=== PATIENT | male | born 1960 | race Caucasian/White ===

== ENCOUNTER 2022-01-11 14:20 | Outpatient (REF) | payer BC, SELFPAY ==
[2022-01-11 17:26] LABS: ALT 67 U/L (16-63); AST 44 U/L (15-37); Albumin 3.9 g/dL (3.4-5.0); Alkaline Phosphatase 45 U/L (46-116); Anion Gap 12.7 mmol/L (3-11); BUN 15 mg/dL (7-18); Bilirubin, Total 0.8 mg/dL (0.2-1.0); CO2 26.3 mmol/L (21.0-32.0); CREATININE 1.2 mg/dL (0.70-1.30); Calcium 9.2 mg/dL (8.5-10.1); Calculated LDL 87 mg/dL (<100); Chloride 103 mmol/L (98-107); Cholesterol 157 mg/dL (<200); Glucose 202 mg/dL (74-106); HDL Cholesterol 34 mg/dL (40-60); Potassium 4.2 mmol/L (3.5-5.1); Sodium 142 mmol/L (136-145); Total Protein 7.2 g/dL (6.4-8.2); Triglyceride 184 mg/dL (<150)
[2022-01-11 18:09] LABS: HCT 43.1 % (40.0-50.0); HGB 14.1 g/dL (13.5-17.5); MCH 27.6 pg (27.0-33.0); MCHC 32.7 % (32.0-36.0); MCV 85 fL (80-95); MPV 10.6 fL (8.0-11.0); Platelet Count 240 10^3/uL (130-400); RDW 12.8 % (11.8-14.1); RDW-SD 39.2 fL; WBC 6.79 10^3/uL (4.4-10.8)
[2022-01-11 19:22] LABS: Hemoglobin A1C 10.6 % (<5.7)
[2022-01-12 17:54] LABS: Albumin ug/mg Crea 10 (<30); Albumin, Ur 1.9 mg/dL (See Note); Creatinine, Ur 188.4 mg/dL (See Note)
[2022-01-13 15:01] LABS: PSA, Screening 0.9 ng/mL (<=4.5)
== END 2022-01-11 14:21 | disposition home or self-care (01) ==
LOC: NCHCN 14:20
PROVIDERS: PCP Physician Assistant; Visit Provider Physician Assistant
DX: E11.9 Type 2 diabetes mellitus without complications (principal); I10 Essential (primary) hypertension; Z12.5 Encounter for screening for malignant neoplasm of prostate
CPT/HCPCS: 80053; 80061; 84153; 85027; 82043; 82570; 83036

== ENCOUNTER 2022-12-08 13:39 | Outpatient (REF) | payer BC, SELFPAY ==
[2022-12-08 16:18] LABS: ALT 49 U/L (16-63); AST 25 U/L (15-37); Albumin 4.2 g/dL (3.4-5.0); Alkaline Phosphatase 42 U/L (46-116); BUN 22 mg/dL (7-18); Bilirubin, Total 0.9 mg/dL (0.2-1.0); CREATININE 1.1 mg/dL (0.70-1.30); Calcium 9.7 mg/dL (8.5-10.1); Calculated LDL 85 mg/dL (<100); Chloride 104 mmol/L (98-107); Cholesterol 142 mg/dL (<200); Glucose 102 mg/dL (74-106); HDL Cholesterol 34 mg/dL (40-60); Potassium 4.9 mmol/L (3.5-5.1); Sodium 140 mmol/L (136-145); Total Protein 7.2 g/dL (6.4-8.2); Triglyceride 116 mg/dL (<150)
[2022-12-08 16:56] LABS: COMMENT (LAB VIEW ONLY) 75.25 mg/dL; Microalb ug/mg Crea 5.6 ug/mg Cr
== END 2022-12-08 13:40 | disposition home or self-care (01) ==
LOC: NCHCN 13:39
PROVIDERS: PCP Physician Assistant; Visit Provider Physician Assistant
DX: E11.9 Type 2 diabetes mellitus without complications (principal)
CPT/HCPCS: 80053; 80061; 82043; 82570; 83036

== ENCOUNTER 2023-11-06 06:40 | Day surgery (SDC) | payer BC, SELFPAY ==
--- NOTE | 2023-11-05 21:10 | PDOC.DSDIS_ITS ---
Date of service: 11/06/23 Time of Service: 09:12 Discharge Plan Disposition Patient Disposition: Home Condition: Good Discharge Details Reason For Visit: colon scope Attending Provider: Luz Retana Primary Care Provider: Cornelio Casper Home Meds and New Rx's Prescriptions: Continued (DME) Dexcom G6 Transmitter Device See Rx Instructions .ROUTE Rx Instructions: As directed (DME) Dexcom G7 Sensor Device See Rx Instructions .ROUTE Rx Instructions: As directed (DME) Dexcom G7 Call Center Professional Misc See Rx Instructions .ROUTE Rx Instructions: As directed Jardiance 25 mg tablet 25 mg PO DAILY metformin 500 mg tablet 500 mg PO BID Novolin N FlexPen 100 unit/mL (3 mL) insulin pen 45 unit subcut BID semaglutide 1 mg/dose (2 mg/1.5 mL) pen injector 1 mg subcut QWEEK pioglitazone 15 mg tablet 15 mg PO DAILY sildenafil 25 mg tablet 25 mg PO DAILY PRN Rx Instructions: administer 1-4 tabs 30 minutes to 4 hours before activity simvastatin 40 mg tablet 40 mg PO DAILY cholecalciferol (vitamin D3) 50 mcg (2,000 unit) capsule 50 mcg PO DAILY lisinopril 20 mg tablet 5 mg PO DAILY Discontinued bisacodyl [Dulcolax (bisacodyl)] 5 mg tablet,delayed release (DR/EC) 5 mg PO ONCE Qty: 4 0RF Rx Instructions: Take per colonoscopy instructions provided by ordering providers office polyethylene glycol 3350 17 gram/dose powder 17 g PO ONCE Qty: 238 0RF Rx Instructions: Take per colonoscopy instructions provided by ordering providers office Discharge Instructions Additional Instructions: DSU Colonoscopy Post- Op Instructions Instructions for Everyone who is given Anesthesia: For your safety, please do the following for the next twenty-four (24) hours: *Do Not operate a motor vehicle (car, truck, motorcycle, etc.) *Do Not drink alcoholic beverages or use any recreational drugs for the first 24 hours or while taking pain medications. The medications in your body may have a reaction that can be dangerous. *Do Not make any important decisions or sign any important papers. Findings: Three polyps Follow up: My office will send you a letter in 3-4 weeks time w/ the results and when we want you to repeat the scope. 1. No lifting over 20 pounds or strenuous activity for the first 24 hours after your procedure. After 24 hours there are no restrictions on your activity but you may feel fatigued for a few days. 2. After you arrive home you may have a light meal and return to your normal diet as you can tolerate it without feeling sick to your stomach. 3. You may have a bloated, gaseous feeling in your belly (abdomen) after a colonoscopy. Passing gas and belching will help. Walking or lying down on your left side with your knees flexed may relieve the discomfort. Call the office at [phone] (Office) or [phone] (Hospital) right away if you notice any of the following: a.Vomiting of blood or ?coffee ground stools?. b.Rectal bleeding 1Tbsp, blood clots or continuous bleeding. c.Severe belly (abdominal) pain. d.A hard distended belly (abdomen) and an inability to pass gas. 4. Please don?t expect to have a normal BM (bowel movement) for 2-3 days after your procedure. 5. If there are questions regarding the findings of your procedure, please contact your doctor 6. If you are unable to contact your doctor with a problem, contact the hospital at [phone]. 7. Continue all your regular medications unless directed otherwise. I understand the above instructions and have no questions. Signature of Patient or Adult Escort Name of Responsible Adult Escort Signature of Nurse Date/Time Activity:: see above Activity:: see above Diet:: Carb Counting Discharge Orders Discharge Orders: Discharge Order (Routine); Ordered 11/06/23 Ordered By: Luz Retana DS: Diagnosis Discharge Diagnosis (1) Essential hypertension: Status: Acute (2) Hyperlipidemia: Status: Acute (3) Type 2 diabetes mellitus: Status: Acute (4) Obesity: Status: Chronic (5) Villous adenoma of colon: Status: Acute Asessment and Plan: The patient is seen and examined after their colonoscopy.? The patient has been able to pass gas.? They are not having abdominal pain.? They have been able to tolerate liquids and a snack.? They do not have any nausea or vomiting.? They are not having any chest pain or shortness of breath.??? They are not having any rectal bleeding. Their vital signs have been stable-see nursing notes. We discussed findings during their colonoscopy, and any biopsies that were done/polyps that were removed. The patient will be sent a letter with any biopsy results, and when to repeat the colonoscopy.-see discharge instructions. Patient was given explicit instructions to follow-up regarding colonoscopy-refer to discharge instructions.? We reviewed resumption of medications. Patient verbalized understanding and discharged in stable and satisfactory condition- See nursing notes.
--- NOTE | 2023-11-05 21:13 | W.COLOREPORT ---
Date of service: 11/06/23 Time of Service: 17:42 Colonoscopy Report Date of procedure: 11/06/23 Pre-op diagnosis general: villous adenoma Post-op diagnosis procedure note: other (Polyps) Surgeon: Luz Retana Anesthesia Type: General:No Airway Estimated blood loss (mL): 1 Pathology: other Complications: None Disposition: same day Prep: Miralax/Dulcolax Retraction Time: 13 Procedure Description: After informed consent was obtained the patient was taken to the procedure room and placed in a left decubitous position. Monitors were applied and a time out was done. The patients name, date of , procedure, allergies to medications and metal in their body was reviewed. The patient was then sedated. Once sedated and comfortable a rectal exam was done. External exam-very small external hemorrhoid x 1. Internal exam revealed a normal sphincter tone and no palpable masses. The prostate no palpable masses The scope was then introduced and retrofelexed. Grade 2 internal hemorrhoids x 3 columns were identified. The scope was then advanced to the cecum without difficulty. The TI and appendiceal orifice were identified. The scope was then slowly retracted over 13 minutes back into the rectum. Patient had 3 polyps at 80 cm. 2 of them were 0.75 pedunculated polyps. One was a 0.5 cm flat polyp. All are removed with a cold biting forcep. All specimens are retrieved and no bleeding is noted. This is the area of the previous polyps that he had. A tattoo was noted. No diverticula or AVMs are visualized today. Mucosa is pink and healthy with a normal vascular pattern. The scope was removed and the patient was woken up and taken back to Same day surgery in stable condition. The patient tolerated the procedure well and there were no immediate complications. Follow up: The patient should follow up in 3-5 years unless they develop changes in bowel habits or other new gastrointestinal complaints. [place] Bowel Prep [place] Bowel Prep Right Colon: 3 Left Colon: 2 Transverse Colon: 3 Total Score: 8
[2023-11-06 07:06] VITALS: BP 133/71; PULSE 70; RESP 16; TEMP 36.7; O2SAT 98
[2023-11-06] MEDS: Lactated Ringers 1,000 ML 80 ML IV (07:09)
[2023-11-06 07:55] VITALS: BMI 45.3
--- NOTE | 2023-11-06 07:55 | ANES.PREOP_ITS ---
General Info Date of Service Date Performed: 11/06/23 Height: 5 ft Weight: 105.2 kg Body Mass Index (BMI): 45.3 Surgical Procedure: Operation Date: 11/06/23 08:20 Proposed Procedure Side Surgeon ruby Retana, Meds Allergies and Home Medications Allergies Allergy/AdvReac Type Severity Reaction Status Date / Time No Known Allergies Allergy Verified 11/06/23 07:04 Home Medication Medication Instructions Recorded blood-glucose meter,continuous 04/17/23 (Dexcom G7 Offset Plate Maker) blood-glucose sensor (Dexcom G7 04/17/23 Sensor device) blood-glucose transmitter (Dexcom 04/17/23 G6 Transmitter device) cholecalciferol (vitamin D3) 50 50 mcg PO DAILY 04/17/23 mcg (2,000 unit) capsule empagliflozin 25 mg tablet 25 mg PO DAILY 04/17/23 (Jardiance) insulin NPH isoph U-100 human 100 45 unit subcut BID 04/17/23 unit/mL (3 mL) subcutaneous pen (Novolin N FlexPen) metformin 500 mg tablet 500 mg PO BID 04/17/23 pioglitazone 15 mg tablet 15 mg PO DAILY 04/17/23 semaglutide 1 mg/dose (2 mg/1.5 1 mg subcut QWEEK 04/17/23 mL) subcutaneous pen injector sildenafil 25 mg tablet 25 mg PO DAILY PRN 04/17/23 simvastatin 40 mg tablet 40 mg PO DAILY 04/17/23 lisinopril 20 mg tablet 5 mg PO DAILY 09/27/23 Current Visit Medications: Current Medications Generic Name Dose Route Start Last Admin Trade Name Freq PRN Reason Stop Dose Admin Hyoscyamine Sulfate 0.125 mg 11/06/23 09:06 Hyoscyamine 0.125 Mg Sl/Oral/Chew SL 12/06/23 09:05 DIRECTED PRN Ringer's Solution 1,000 mls @ 80 mls/hr 11/06/23 06:00 11/06/23 07:09 IV 11/06/23 23:59 80 mls/hr INFUSION LOU Administration IV Miscellaneous Supplies 1 each 11/06/23 06:00 Iv Access IV 11/06/23 23:59 DIRECTED LOU Ondansetron HCl 4 mg 11/06/23 09:06 Ondansetron 4 Mg/2 Ml Vial IVP 12/06/23 09:05 Q4H PRN PRN Nausea / Vomiting Sodium Chloride 0 ml 11/06/23 06:00 Normal Saline Flush 10 Ml Syr IV 11/06/23 23:59 PRN PRN Sodium Chloride 0 ml 11/06/23 06:00 Normal Saline 10 Ml Vial IJ 11/06/23 23:59 DIRECTED PRN Sterile Water 0 ml 11/06/23 06:00 Water,Injection,Sterile 10 Ml Vial IJ 11/06/23 23:59 DIRECTED PRN PFSH Active Problems Active Problems: Problem Status Onset Code Villous adenoma of colon D37.4 Essential hypertension I10 Obesity E66.9 Hyperlipidemia E78.5 Type 2 diabetes mellitus E11.9 Surgical History Surgical History History of uvulopalatopharyngoplasty History of cholecystectomy History of arthroscopy of right shoulder 1999 Tobacco Smoking/Tobacco Use Status: Former Tobacco Use Alcohol Alcohol Intake: never Substance Use Substance use: Never Substance use type: does not use Vital Signs and Lab Results Vital Signs Most Recent Vital Signs in EMR: Most Recent Vital Signs Temp Pulse Resp BP Pulse Ox 36.7 C 70 16 133/71 98 11/06/23 07:06 11/06/23 07:06 11/06/23 07:06 11/06/23 07:06 11/06/23 07:06 Point of Care Results Point of Care Results: Finger Stick Blood Glucose 228 11/06/23 07:03 Lab Results Blood Type / Crossmatch: No Data to Display Complete Blood Count: No Data to Display Complete Metabolic Panel: No Data to Display Liver Function Panel: No Data to Display Coagulation Panel: No Data to Display Cardiac Panel: No Data to Display Arterial Blood Gas: No Data to Display Venous Blood Gas: No Data to Display Pancreas Panel: No Data to Display Thyroid Panel: No Data to Display Infectious Disease: No Data to Display Blood Cultures: No Data to Display Toxicology Panel: No Data to Display Anesthesia Assessment and Plan Anesthesia History Personal History: No History of Anesthesia Complications Family History: No Family History of Anesthesia Complications Exercise Tolerance Exercise Tolerance: Metabolic Equivalents>4 Pertinent Negatives Pertinent Negatives: No Symptoms of GERD Cardiac & Pulmonary Exam Cardiac Exam: Normal S1/S2 Heart Sounds Pulmonary Exam: Clear Bilateral Breath Sounds Implantable Cardiac Device Does patient have a Pacemaker or an ICD?: No Airway Exam Known Difficult Airway: No Mallampati Class: 2 Mouth Opening: Normal (> 3cm) Thyromental Distance: Greater than 3 cm Neck Range of Motion: Full ROM Neck Circumference: Normal Teeth Condition: Normal Dentition ASA Classification ASA Score: ASA 3 Emergency Case?: No NPO Status NPO Status: NPO Clears >2 hours, Solids >8 hours Anesthesia Plan Resuscitation Status: Full Code Anesthesia Technique: General Anesthesia Airway Planned: Natural Airway Monitors Used: Standard Monitors
--- NOTE | 2023-11-06 08:29 | W.PM.HP.N ---
Date of service: 11/06/23 Time of Service: 08:33 Assessment and Plan Assessment and plan (1) Essential hypertension: Status: Acute (2) Hyperlipidemia: Status: Acute (3) Type 2 diabetes mellitus: Status: Acute (4) Obesity: Status: Chronic (5) Villous adenoma of colon: Status: Acute Assessment and plan: Plan: Colonoscopy w/ general & natural airway. Informed consent is obtained for the procedural (explained in simple layman's terms that?the pt and/or family could understand) explaining risks vs benefits and alternatives to the procedure and consequences if we do not do the procedure and need/rational for the procedure. Risks include but are not limited to: bleeding, infection, perforation of colon.? This would necessitate emergency surgery to repair the damage w/ possible ostomy; and other associated complications w/ the required surgery. ? Also complications of anesthesia including aspiration, HI/CVA/, inability to complete the procedure. I discussed with the?patient would they could expect during the procedure, post procedure and recovery time and risks.? History of Present Illness Narrative: Patient is here today for colonoscopy for Villous adenoma in 2018.??? They completed a bowel prep with just a clear yellow residual effluent.? They not having any chest pain or shortness of breath, currently.? They are not experiencing any fever or chills.? They deny any productive cough or upper respiratory tract infection signs or symptoms.? They are not having abdominal pain, or nausea and vomiting.? They have not had any changes in medications, past medical history or past surgical history since previously being seen in the office. They have not had any accidents or have been in the ER since the clinic pre-operative evaluation. ??I reviewed the procedure with the patient today, including risks and benefits of the procedure, and what they could expect at home for recovery.? All questions are answered to the patient?s satisfaction today, and they are stable to proceed with the proposed procedure. patient has not noted any changes in his bowels. He has not noted any changes in his weight. He has not noticed any rectal bleeding. chronic diarrhea due to metformin. PreOp colo H&P 09/25 The patient is here for Colonoscopy pre-op. His last screening was in 2018 , which was remarkable for tubular adenoma x 2 and a tubulovillious adenoma as well. He denies a family history of colon cancer. He has not had any bowel habit changes. -Discussed colonoscopy bowel prep as well as the procedure. Discussed possible complications of the procedure to include bleeding, pain, perforation, missed small lesion/polyp, sore throat, aspiration and adverse reaction to the medications. Questions were answered to patient?s satisfaction. No guarantees were implied or given. Anesthesia: general (without airway) Previous surgical intolerances: None Previous surgical complications: None Pulmonary risk factors: None PFT's: None Planned procedure: Yes Sleep apnea risks: No Can climb one flight of stairs (12-13 steps) in less than 30 seconds without stopping and without symptoms: Yes The surgery proposed for this patient is: Low risk Active cardiac conditions: None ECHO: None Stress Test: None Active risk factors: None ASA (acetylsalicylic acid):No Beta blockers: No Anti-coagulation: N/A Medications to be held: Semaglutide will need to be held x 14 days prior Vitamins and supplements x 5 days prior Jardiance x 3 days prior Insulin- take 1/2 usual dose the night prior and the morning of Metformin held the night prior and the morning of Lisinopril the morning of P// Colonoscopy under sedation New HPI 63 y/o male with history of type 2 DM, HTN, HLD and obesity presents for colonoscopy screening pre-op. His last screening was in 2018 , which was remarkable for tubular adenoma x 2 and a tubulovillious adenoma as well. He denies a family history of colon cancer. He denies any changes in bowel habits describing chronic diarrhea since starting metformin. Denies bloody or black tarry stools, abdominal pain or constipation. He denies constitutional symptoms. He denies chest pain, palpitations, dyspnea or dyspnea with exertion. He denies prior history or family history of adverse reactions or complications with anesthesia. The patient denies any history of stroke, HI, seizures, bleeding or clotting disorders. He denies having any implanted metal in his body. Review of Systems All systems reviewed & are unremarkable except as noted in HPI and below PFSH All Active Problems Villous adenoma of colon (Acute) Essential hypertension (Acute) Obesity (Chronic) Hyperlipidemia (Acute) Type 2 diabetes mellitus (Acute) Surgical History History of uvulopalatopharyngoplasty History of cholecystectomy History of arthroscopy of right shoulder 1999 Family History Mother Lymphoma Father , age 90 No problems noted. Brother Diabetes Kidney failure Social History Smoking/Tobacco Use Status: Former Tobacco Use tobacco type: cigarettes Quit Date: 05/14/03 Smoking risk assessment performed?: Yes Alcohol Intake: never Drug use: Never Substance use type: does not use Household members: spouse Housing: house Do you feel safe at home: Yes Do you feel safe in your relationship?: Yes Meds Allergies and Home Medications Allergies Allergy/AdvReac Type Severity Reaction Status Date / Time No Known Allergies Allergy Verified 11/06/23 07:04 Home Medications Medication Instructions Recorded Confirmed Type blood-glucose meter,continuous 04/17/23 History ([employer] G7 Information Systems Security Developer) blood-glucose sensor (Dexcom G7 04/17/23 History Sensor device) blood-glucose transmitter (Dexcom 04/17/23 History G6 Transmitter device) cholecalciferol (vitamin D3) 50 50 mcg PO DAILY 04/17/23 11/06/23 History mcg (2,000 unit) capsule empagliflozin 25 mg tablet 25 mg PO DAILY 04/17/23 11/02/23 History (Jardiance) insulin NPH isoph U-100 human 100 45 unit subcut BID 04/17/23 11/06/23 History unit/mL (3 mL) subcutaneous pen (Novolin N FlexPen) metformin 500 mg tablet 500 mg PO BID 04/17/23 11/06/23 History pioglitazone 15 mg tablet 15 mg PO DAILY 04/17/23 11/06/23 History semaglutide 1 mg/dose (2 mg/1.5 1 mg subcut QWEEK 04/17/23 11/02/23 History mL) subcutaneous pen injector sildenafil 25 mg tablet 25 mg PO DAILY PRN 04/17/23 11/06/23 History simvastatin 40 mg tablet 40 mg PO DAILY 04/17/23 11/06/23 History lisinopril 20 mg tablet 5 mg PO DAILY 09/27/23 11/06/23 History Exam Narrative Exam Narrative: PHYSICAL EXAM GENERAL APPEARANCE: Alert, healthy appearance, oriented, x 3,? in no acute distress HYDRATION: Well hydrated HEAD, EYES, EARS, NECK, THROAT: Head is normocephalic, pupils equal, round, reactive to light and accommodation, ocular movement intact, sclera clear and no jaundice. ?Dentition - dentures LUNGS: normal respiration/normal chest excursion. ?Clear to auscultation bilaterally. ?No wheeze. H: r/r/r ABDOMEN: soft and non-tender to palpation.? Normal bowel sounds.? Results Last Vital Signs Temp 36.7 C 11/06/23 07:06 Pulse 70 11/06/23 07:06 Resp 16 11/06/23 07:06 BP 133/71 11/06/23 07:06 Pulse Ox 98 11/06/23 07:06 Time Spent Time spent with Patient: <40 minutes Time was spent: preparing to see the patient(eg.review tests), obtaining and/or reviewing separately otained hiistory, indepentently interpreting results, counseling the patient and care coordination
--- NOTE | 2023-11-06 08:53 | BOWEL_PTH ---
PATIENT: Olu Bailey LOC: [facility] U#:[id number] AGE/SX: 63/M ROOM: RE11/06/[address]: Luz Retana : 1960 BED: DIS: 11/06/2023 SPEC #: [id number] RECD: 11/06/23 12:49 STATUS: BRYAN REQ #: [id number] ANGEL: 11/06/23 08:[address]: Luz Retana DEPT: Surgical Specimen RECD BY: Cuca Clarke ENTERED: 11/06/23 12:51 SP TYPE: Bowel OTHR DR: Cornelio Casper Tissues: 1 - BIOPSY BOWEL Procedures: GROSS AND MICRO LEVEL 4 Comments: [id number]
[2023-11-06 09:04] VITALS: BP 117/79; PULSE 70; RESP 16; TEMP 36.6; O2SAT 98
--- NOTE | 2023-11-06 09:13 | W.COLOREPORT ---
Date of service: 11/06/23 Time of Service: 17:45 Colonoscopy Report Date of procedure: 11/06/23 Pre-op diagnosis general: villous adenoma Post-op diagnosis procedure note: same Surgeon: Luz Retana Anesthesia Type: General:No Airway Estimated blood loss (mL): 1 Pathology: other Complications: None Disposition: same day Prep: Miralax/Dulcolax Procedure Description: After informed consent was obtained the patient was taken to the procedure room and placed in a left decubitous position. Monitors were applied and a time out was done. The patients name, date of , procedure, allergies to medications and metal in their body was reviewed. The patient was then sedated. Once sedated and comfortable a rectal exam was done. External exam shows small external hemorrhoids. Internal exam revealed a normal sphincter tone and no palpable masses. The scope was then introduced and retrofelexed. No internal hemorrhoids were identified. The scope was then advanced to the cecum w/out difficulty. The TI and appendiceal orifice were identified. The scope was then slowly retracted over [] minutes back into the rectum. The patient had 3 polyps that were removed today. 2 of them are 0.75 cm pedunculated polyps and removed with a cold biting forcep. The third was a flat 5 mm polyp that is removed with a cold biting forcep. All specimen is retrieved and no bleeding is noted. No diverticula visualized today. The scope was removed and the patient was woken up and taken back to Same day surgery in stable condition. The patient tolerated the procedure well and there were no immediate complications. Follow up: The patient should follow up in 3=5 years unless they develop changes in bowel habits or other new gastrointestinal complaints. [place] Bowel Prep [place] Bowel Prep Right Colon: 2 Left Colon: 2 Transverse Colon: 2 Total Score: 6
[2023-11-06 09:30] VITALS: BP 111/66; PULSE 65; RESP 16; TEMP 36.5; O2SAT 98
--- NOTE | 2023-11-06 15:44 | W.ANESPOSTOP ---
Postoperative Evaluation Date, Time and Location Date Performed: 11/06/23 Time Performed: 09:06 Patient Location: Day Surgery Unit Vital Signs Most Recent Imported Vital Signs: Most Recent Vital Signs Temp Pulse Resp BP Pulse Ox 36.5 C 65 16 111/66 98 11/06/23 09:30 11/06/23 09:30 11/06/23 09:30 11/06/23 09:30 11/06/23 09:30 Pain Score Most Recent Pain Score: Most Recent Pain Score Pain Level 0 11/06/23 09:30 Assessment Mental Status: Awake (Alert & Oriented to Patient Baseline) Airway and Respiratory Function: Patent airway with normal (patient baseline) respiratory exam Cardiovascular Function: Hemodynamically Stable Hydration Status: Adequately Hydrated Nausea & Vomiting: No Nausea or Vomiting Pain: Pt. Denies Any Pain Peripheral Nerve Block: Patient did not receive a nerve block
== END 2023-11-06 09:50 | disposition home or self-care (01) ==
PROVIDERS: PCP Physician Assistant; Visit Provider Surgery
PROC: 0DJD8ZZ Inspection of Lower Intestinal Tract, Via Natural or Artificial Opening Endoscopic (ICD-10-PCS; CPT 45378; principal; 2023-11-06 08:15)
DX: I10 Essential (primary) hypertension (principal); E11.9 Type 2 diabetes mellitus without complications; Z12.11 Encounter for screening for malignant neoplasm of colon; K64.1 Second degree hemorrhoids; D12.4 Benign neoplasm of descending colon
CPT/HCPCS: 45380; 88305; J2704

== ENCOUNTER 2023-11-21 14:18 | Outpatient (REF) | payer BC, SELFPAY ==
[2023-11-21 17:24] LABS: Hemoglobin A1C 7.3 % (<5.7)
[2023-11-21 18:58] LABS: ALT 34 U/L (16-63); AST 17 U/L (15-37); Alkaline Phosphatase 57 U/L (46-116); Anion Gap 9.4 mmol/L (3-11); BUN 16 mg/dL (7-18); Bilirubin, Total 0.64 mg/dL (0.2-1.0); CO2 27.6 mmol/L (21.0-32.0); COMMENT (LAB VIEW ONLY) 117.39 mg/dL; CREATININE 1.2 mg/dL (0.70-1.30); Calcium 9.7 mg/dL (8.5-10.1); Calculated LDL 66 mg/dL (<100); Chloride 106 mmol/L (98-107); Cholesterol 149 mg/dL (<200); Estimated GFR 67.95 (mL/min/1.73m2); Glucose 114 mg/dL (74-106); HDL Cholesterol 38 mg/dL (40-60); Microalb ug/mg Crea 2.6 ug/mg Cr; Potassium 4.8 mmol/L (3.5-5.1); Sodium 143 mmol/L (136-145); Total Protein 6.9 g/dL (6.4-8.2); Triglyceride 226 mg/dL (<150)
== END 2023-11-21 14:19 | disposition home or self-care (01) ==
LOC: NCHCN 14:18
PROVIDERS: PCP Physician Assistant; Visit Provider Physician Assistant
DX: E11.9 Type 2 diabetes mellitus without complications (principal)
CPT/HCPCS: 80053; 80061; 82043; 82570; 83036

== ENCOUNTER 2024-08-12 18:39 | Outpatient (REF) | payer BC, SELFPAY ==
[2024-08-12 20:40] LABS: HCT 45.8 % (40.0-50.0); HGB 14.8 g/dL (13.5-17.5); MCH 28.6 pg (27.0-33.0); MCHC 32.3 % (32.0-36.0); MCV 89 fL (80-95); MPV 10.6 fL (8.0-11.0); Platelet Count 215 10^3/uL (130-400); RBC 5.17 10^6/uL (4.36-5.78); RDW 13.6 % (11.8-14.1); RDW-SD 43.8 fL; WBC 6.86 10^3/uL (4.4-10.8)
[2024-08-12 20:58] LABS: ALT 32 U/L (16-63); AST 16 U/L (15-37); Alkaline Phosphatase 57 U/L (46-116); Anion Gap 11.9 mmol/L (3-11); BUN 19 mg/dL (7-18); Bilirubin, Total 0.6 mg/dL (0.2-1.0); CO2 24.1 mmol/L (21.0-32.0); CREATININE 1.1 mg/dL (0.70-1.30); Calcium 9.3 mg/dL (8.5-10.1); Chloride 109 mmol/L (98-107); Estimated GFR 74.96 (mL/min/1.73m2); Glucose 174 mg/dL (74-106); Potassium 4.7 mmol/L (3.5-5.1); Sodium 145 mmol/L (136-145); Total Protein 6.9 g/dL (6.4-8.2)
== END 2024-08-12 18:40 | disposition home or self-care (01) ==
LOC: NCHCN 18:39
PROVIDERS: PCP Physician Assistant; Visit Provider Physician Assistant
DX: E11.9 Type 2 diabetes mellitus without complications (principal)
CPT/HCPCS: 80053; 85027; 83036